=== PATIENT | male | born 2000 | race Two or more races ===

== ENCOUNTER → 2023-01-15 14:54 | Outpatient (BNVA) | payer OTHER, SELFPAY | PROVIDERS: PCP Internal Medicine; Visit Provider Physician Assistant Surgical ==

== ENCOUNTER 2023-03-30 14:09 | Outpatient (AMB) | payer OTHER, SELFPAY ==
--- NOTE | 2023-03-30 14:14 | MHC.OFFVISWM ---
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 He heard about our program from his dad. His goal is to lose weight and achieve a healthy lifestyle. He reports first being concerned about his weight about 3 years ago, highest weight to date was 301. Current weight is 293.4 with a BMI of 44.6. He has tried multiple methods of weight loss including fad diets, exercie without permanent results. He lives with his mom. He currently does not work. He wakes at:?7 am, and goes to bed at?10 pm. Dinner is at 5 pm. Breakfast: skip or egg and cheese sandwich AM snack: hot pocket or string cheese Lunch: fast food PM snack: skip or cookies Dinner: rice and beans and meat After dinner: cookies or protein shake whey protein powder with honey cinnamon, with whole milk Other snacks: chips Liquids: 40-60 oz water, soda w fast food every other day med-lg, v8 juice every other day Alcohol/marijuana/tobacco intake: none Exercise: gym [employer] just started off this past week but prior daily, weights and treadmill GERD score: 6 MEDARDO score: 0 ESS score: 2 QOL score: 40 PFSH Surgical History No history of previous surgery Family History Mother No problems noted. Father No problems noted. Brother No problems noted. Brother No problems noted. Brother No problems noted. Sister No problems noted. Social History Alcohol intake: current Alcohol intake frequency: holidays/special occasions only Patient Tobacco Use Status: Never used Tobacco Review of Systems Const All systems reviewed & are unremarkable except as noted in HPI and below Physical Exam Vital Signs: Last Vital Signs Temp 97.0 F 03/30/23 14:15 Pulse 91 03/30/23 14:15 BP 144/67 H 03/30/23 14:15 Pulse Ox 95 03/30/23 14:15 Oxygen Delivery Method Room Air 03/30/23 14:15 BMI result Body Mass Index 44.6 Const General: cooperative, healthy appearing and no acute distress Orientation/consciousness: patient oriented x3 HEENT Head: Yes normal to inspection Ears: hearing grossly normal bilaterally General nose exam: Normal external nose present Face and sinus: Yes normal facial exam Eyes General: appearance normal, both eyes and all related structures Resp Effort & Inspection: normal respiratory effort Auscultation: clear to auscultation bilaterally Cardio Rate: regular rate Rhythm: regular rhythm Heart sounds: S1 normal heart sound present and S2 normal heart sound present GI Inspection: Yes normal to inspection, No distended and Yes obesity Palpation (GI): Soft to palpation, nontender and no guarding Auscultation: normal bowel sounds Skin General skin exam: no rashes or lesions noted Neuro General: patient oriented x3 Extrem General: No edema Psych Appearance: grossly normal Mental Status: mental status grossly normal Speech and movement: Normal speech and movement present Affect: normal affect Attitude: cooperative Assessment & Plan Assessment & Plan (1) Morbid obesity: Code(s): E66.01 - Morbid (severe) obesity due to excess calories Plan: This is a?22 yo male who will start our [facility] program.? ? Adequate sleep of 7-8 hours per night discussed, awakening at 7 am and going to bed at 10 pm ? Purchase body composition analyzer scale (Prince melton or Nikki recommended) and check weight weekly. The best time to do this is first thing in the morning after going to the bathroom. 1. Nutritional counseling: Be sure to careful read the number of scoops per shake Start with 3 Body Fortress Whey Protein shakes ([employer], [employer], [employer]) First shake, (1 scoop in 8 oz low fat unsweetened almond milk or water) at 8am-10am, Second shake (1/2 scoop in 8 oz unsweetened almond milk or water) at 12pm-2pm 1 protein bar (Fulfil bars at [employer], [employer], or [employer]) at 3pm-5pm. Dinner at 5pm (10 forks of protein and 10 forks of salad/vegetables). Meal to include lean meat (beef, fish, pork, turkey, chicken), cooked vegetables or a salad with olive oil and/or fruits (berries, pears, apples, kiwi). Avoid salt, breads, potatoes, rice, pasta, desserts. Another shake with 1/2 scoop in 8 oz unsweetened almond milk or water at 7pm-9pm. Try to drink 64 oz of water daily and avoid soda and juices. ?2. Each shake would be drunk slowly, like coffee in a period of 2 hours. ?3. Cut each bar in 4 pieces and eat each piece in 30 min ?to make each bar last 2 hours. ?4. I emphasized the importance of measuring accurately the food portion and measure it carefully when serving the food on the plate ?5. The meal portions include 10 full-size forks of meat and 10 full-size forks of salad. You always eat the meat portion but you can replace up to half of the forks of salad/vegetables with rice, potatoes or pasta, or a fruit ?if you like. The less you do it the better weight loss will be. ?6. One full-size fork is what can be scooped on the fork without falling aside and not what can be bit with the fork. Use regular forks like those you find in a typical restaurant. ?7.? Please send me weight measurements as soon as possible and then once a week. Always include your diet and exercise plan. Alternatively come weekly at the office for weight checks and send me the measurements. ?8. Exercise counseling: Begin by watching a stretching for beginners video. Start slowly and begin to stretch your muscles. You should do this before and after each exercise session to prevent injury. Please continue to go to [facility] near your home. Ask the learning program manager or one of the trainers how to use the machines if you are unfamiliar with them. Start elliptical with a resistance of 2. Increase resistance by 1 every 3 min to your most comfortable resistance with a max resistance of 8. Reduce the resistance by 1 every 3 minutes back down to 2 and repeat cycles for 300 calories. Alternatively, start treadmill with a speed of 3.0 and incline of 0, increasing incline by 1 every 3 minutes to the highest comfortable level (max 6 for now) then decrease in the same fashion. Repeat process to a goal of 300 calories. Goal of 2000 calories burned or more weekly. You may also consider use of the stationary bike. The easiest would be to chose the fat-burn or interval training program on the machine and do this until you reach the 300 calorie goal. Alternatively, you can manually adjust the resistance in a similar fashion as mentioned above, (resistance of 2-8 with a goal speed of 12 mph). If you want to do weightlifting, do the weightlifting first and then the cardio. Tracking calories is essential. 9. Alternatively start walking outside daily, tracking calories with a goal of 300 calories per day, daily. You can download the melissa Syn[employer] which can track your time, distance and calories while walking outside. You press start in the melissa when you start and then stop when you are finished. 10.? It is important to communicate by text weekly 11. Discussed and answered all questions regarding?obtained consent to participate in the [facility]?Registry. 12. Please follow the diet plan exactly, without any change. If you do not like something about the plan or you feel hungry, you need to communicate with me so I can help you revise the plan. You should not change the plan yourself. Text me at [phone] 13. Goal is to lose at least 8-10 pounds in the first month Patient is morbidly obese and is not considered stable at this time.?I spent a total of 70 minutes reviewing/updating records, examining the patient and counseling the patient on weight management as detailed above. Coding Level of Care Code New Pt Level 5 (80592) Diagnoses Morbid obesity E66.01 Time Spent (min) 06
[2023-03-30 14:15] VITALS: BP 144/67; PULSE 91; TEMP 36.1; O2SAT 95; BMI 44.6
== END 2023-03-30 15:03 | disposition home or self-care (01) ==
PROVIDERS: PCP Internal Medicine; Visit Provider Physician Assistant Surgical
DX: E66.01 Morbid (severe) obesity due to excess calories (principal); Z68.41 Body mass index [BMI] 40.0-44.9, adult
CPT/HCPCS: 99205

== ENCOUNTER → 2023-03-30 14:09 | Outpatient (BNVA) | payer OTHER, SELFPAY | PROVIDERS: PCP Internal Medicine; Visit Provider Physician Assistant Surgical | DX: E66.01 Morbid (severe) obesity due to excess calories (principal); Z68.41 Body mass index [BMI] 40.0-44.9, adult | CPT/HCPCS: 99202 ==